=== PATIENT | female | born 1935 | race Caucasian/White ===

== ENCOUNTER 2018-07-20 21:28 | Emergency (ER) | payer MEDICARE, BC ==
[~2018-07-20] VITALS: Ht 147.3 cm; Wt 66.4 kg
[2018-07-20 21:34] VITALS: BP 189/98; PULSE 82; RESP 18; Ht 147.3 cm; Wt 66.4 kg
--- NOTE | 2018-07-21 00:38 | ERD ---
ER Documentation Chief Complaint Chief Complaint rash/pain right arm since last night HPI This is a 82-year-old female who presents here in emergency department with complaints of rashes and pain to the right upper extremity that started last night. Daughter stated that this is very similar when she had shingles about 3 years ago and she was given a Cyclovir, Lyrica, lidocaine. LMP: Not applicable. Denies headache, head injury, loss of consciousness, dizziness, neck pain, neck stiffness, throat pain, difficulty swallowing, difficulty breathing lying flat, shoulder pain, chest pain, back pain, abdominal pain, nausea, vomiting, constipation, diarrhea, urinary symptoms, or possibility being , loss of bowel and bladder control, trauma, injury, falls, difficulty walking due to pain, numbness or tingling sensation, calf pain, recent travel, recent major surgery in the last 3 weeks, calf pain, recent long travel, recent exposure to any illness, recent antibiotic use in the last 3 months, fever, chills, seizures. Past medical history: Hypertension. Stent placements. Surgical history: Social: Denies smoking, use of alcoholic beverages, use of illegal drugs. ROS All systems reviewed and are negative except as per history of present illness. Medications Home Meds Active Scripts Pregabalin* (Lyrica*) 50 Mg Capsule, 50 MG PO BID PRN for PAIN, #20 CAP Prov:PASILABANCHILOAR F 07/21/18 Prednisone* (Prednisone*) 20 Mg Tab, 60 MG PO DAILY for 4 Days, TAB Prov:PASILABAN,CHILOAR F 07/21/18 Acyclovir* (Zovirax*) 800 Mg Tablet, 800 MG PO 5 TIMES DAILY for 7 Days, TAB Prov:PASILABANCHILOAR F 07/21/18 Allergies Allergies: Coded Allergies: No Known Drug Allergies (Verified Allergy, Unknown, 07/20/18) PMhx/Soc History of Surgery: Yes (CATARACT SX) Anesthesia Reaction: No Hx Neurological Disorder: No Hx Respiratory Disorders: No Hx Cardiac Disorders: Yes (HTN, STENTS, HLD) Hx Psychiatric Problems: No Hx Miscellaneous Medical Probl: Yes (SHINGLES) Hx Alcohol Use: No Hx Substance Use: No Hx Tobacco Use: No Smoking Status: Never smoker Physical Exam Vitals Vital Signs Date Temp Pulse Resp B/P (MAP) Pulse Ox O2 O2 Flow FiO2 Time Delivery Rate 07/20/18 98.6 82 18 189/98 98 21:34 (128) Physical Exam Const: No acute distress Head: Atraumatic Eyes: Normal Conjunctiva ENT: Normal External Ears, Nose and Mouth. Neck: Full range of motion. No meningismus. Resp: Clear to auscultation bilaterally Cardio: Regular rate and rhythm, no murmurs Abd: Soft, non tender, non distended. Normal bowel sounds Skin: No petechiae or rashes. Vesicular lesions noted to right elbow area. Right elbow has good and full range of motion. Low suspicion of septic joint. Right radial pulses within normal limits. Has good and full function of her right hand. Right shoulder is unremarkable. Capillary refills to right upper extremity is unremarkable. Left upper extremity is unremarkable. Back: No midline or flank tenderness Ext: No cyanosis, or edema Neur: Awake and alert. No obvious facial droop. Sensation is intact. Follows commands. Romberg test is negative. No neurological deficits. Psych: Normal Mood and Affect Results 24 hrs Current Medications Medications Dose Sig/Brian Start Time Status Last (Trade) Ordered Route PRN Stop Time Admin Dose Reason Admin Acyclovir 800 mg ONCE ONCE 07/21/18 DC 07/21/18 (Zovirax) PO 01:00 01:06 07/21/18 01:01 Prednisone 60 mg ONCE ONCE 07/21/18 DC 07/21/18 (Prednisone) PO 01:00 01:06 07/21/18 01:01 1 tab ONCE ONCE 07/21/18 DC Acetaminophen PO 01:00 / 07/21/18 01:01 Hydrocodone Bitart ([place] (5/325)) Procedures/MDM Diagnostic tests: Clinical exam. Treatment: [place] p.o. Prednisone. Acyclovir. Re-evaluation: Denies chest pain, back pain, abdominal pain. No neurological deficits. Stated that she feels much better at this time. Differential diagnosis I have low suspicion for deep space infection, Juan Forrest syndrome, chicken pox, scabies, anaphylaxis, anaphylactic shock, septic joint, septic arthritis Final diagnosis: Shingles. Prescription: Acyclovir. Prednisone. Lyrica. Follow-up with PCP in the next 24-48 hours. Come back here in the emergency department for any new symptoms or any worsening symptoms. All questions and concerns were answered. Patient and family members verbalized understanding and agreed with plan of care. Hemodynamically stable on discharge. Departure Diagnosis: Primary Impression: Shingles Condition: Stable Additional Instructions: Follow-up with PCP in the next 24-48 hours. Come back here in the emergency department for any new symptoms or any worsening symptoms. ADA SIBLEY Jul 21, 2018 00:38
[2018-07-21] MEDS ORDERED: ACYC800T5 PO (00:40)
[2018-07-21] MEDS ORDERED: PREG50CA PO ×2 (00:40→00:44)
[2018-07-21] MEDS ORDERED: PRED20TA PO (00:40)
[2018-07-21] MEDS ORDERED: HYDROCODONE/APAP (5/325) TAB PO ONE (01:00)
[2018-07-21] MEDS ORDERED: predniSONE 20 MG TAB PO ONE (01:00)
[2018-07-21] MEDS ORDERED: ACYCLOVIR 800 MG TAB PO ONE (01:00)
== END 2018-07-21 01:26 | disposition home or self-care (01) ==
LOC: FTE 21:28
DX: B02.9 Zoster without complications (principal); I10 Essential (primary) hypertension; Z98.61 Coronary angioplasty status
CPT/HCPCS: 99283; J7512